=== PATIENT | male | born 1930 | race Caucasian/White ===

== ENCOUNTER 2016-11-04 15:57 | Emergency (ER) | payer MEDICARE ==
[~2016-11-04] VITALS: Ht 152.4 cm; Wt 54.4 kg
--- NOTE | 2016-11-04 16:03 | Emergency Room Report ---
History of Present Illness General Chief Complaint: General Complaint Source: Patient, EMS Present Illness HPI [id number] sent from [facility] after his once-weekly visiting nurse thought suprapubic cath not draining Patient denies abd pain, vomiting, diarrhea, fever/chills. "Want to go back home!" Allergies: Coded Allergies: No Known Allergies (Unverified , 11/04/16) Patient History Past Medical History: dementia Past Surgical History: other - Suprapubic cath Pertinent Family History: none Social History: Denies: smoking, alcohol use, drug use Immunizations: UTD Reviewed Nursing Documentation: PMH: Agreed, PSxH: Agreed Nursing Documentation-PMH Hx Neurological Problems: Yes - alzhimers, dementia Review of Systems All Other Systems: negative except mentioned in HPI Physical Exam Vital Signs Date Time Temp Pulse Resp B/P (MAP) Pulse Ox O2 Delivery O2 Flow Rate FiO2 11/04/16 15:50 98.1 78 16 134/80 98 Room Air Sp02 EP Interpretation: reviewed, normal General Appearance: normal inspection, well appearing, no apparent distress, alert Head: normocephalic, atraumatic Eyes: bilateral eye PERRL, bilateral eye EOMI ENT: normal ENT inspection, hearing grossly normal, normal voice Neck: normal inspection, full range of motion, supple, no bony tend Respiratory: normal inspection, lungs clear, normal breath sounds, no respiratory distress, no retraction, no wheezing Gastrointestinal: normal inspection Genitourinary: no CVA tenderness, other - Suprapubic cath in place. Mild site irritation. No infection. Sampson is draining yellow/pale urine. No pus. Musculoskeletal: normal inspection, back normal, normal range of motion, Redd' s Sign negative Neurologic: normal inspection, alert, responsive, speech normal Psychiatric: normal inspection, judgement/insight normal, mood/affect normal Skin: normal inspection, normal color, no rash Lymphatic: normal inspection Medical Decision Making Diagnostic Impression: Primary Impression: Suprapubic catheter dysfunction Qualified Codes: T83.010A - Breakdown (mechanical) of cystostomy catheter, initial encounter ER Course Catheter easily flushed and is actively draining No sign of site infection Patient well appearing VSS. Afebrile. Not septic appearing DC back to [facility] Last Vital Signs Date Time Temp Pulse Resp B/P (MAP) Pulse Ox O2 Delivery O2 Flow Rate FiO2 11/04/16 15:50 98.1 78 16 134/80 98 Room Air Status: improved Disposition: ASSISTED LIVING Condition: Improved Additional Instructions: - Catheter was flushed and is draining properly - Does NOT need to be replaced at this time DIYA AWLKER M.D. Nov 04, 2016 16:03
[2016-11-04 18:25] VITALS: BP 152/72
== END 2016-11-04 18:30 | disposition home or self-care (01) ==
LOC: EDBD 15:57 → EMR 16:00
DX: T83.090A Other mechanical complication of cystostomy catheter, initial encounter (principal); Y84.6 Urinary catheterization as the cause of abnormal reaction of the patient, or of later complication, without mention of misadventure at the time of the procedure; Y92.9 Unspecified place or not applicable; G30.9 Alzheimer's disease, unspecified; F02.80 Dementia in other diseases classified elsewhere, unspecified severity, without behavioral disturbance, psychotic disturbance, mood disturbance, and anxiety
CPT/HCPCS: 99284